=== PATIENT | male | born 1955 | race Caucasian/White ===

== ENCOUNTER 2018-11-09 11:32 | Day surgery (SDC) | payer OTHER ==
[2018-11-08 10:57] VITALS: BMI 45.0
[2018-11-09 12:28] VITALS: TEMP 97.8
[2018-11-09] MEDS ORDERED: MIDAZOLAM HCL 2 MG/2 ML SINGLE DOSE VIAL ONE (13:00)
[2018-11-09] MEDS ORDERED: PROPOFOL 20 ML ONE (13:01)
[2018-11-09] MEDS ORDERED: ceFAZolin SODIUM 1 GM VIAL IVPB ONE ×2 (13:14→13:24)
[2018-11-09] MEDS ORDERED: ceFAZolin SODIUM 1 GM VIAL ONE ×3 (13:24→13:38)
--- NOTE | 2018-11-09 13:34 | HP ---
History & Physical Update - History History: No Change - Physical Physical: No Change - Assessment Assessment: No Change - Plan Plan: No Change
[2018-11-09] MEDS ORDERED: ACETAMINOPHEN 1000 MG/100 ML VIAL (NON FORMULARY) IVPB ONE (13:36)
[2018-11-09] MEDS ORDERED: KETOROLAC TROMETHAMINE 30 MG/1 ML VIAL ONE ×2 (13:38→13:39)
[2018-11-09] MEDS ORDERED: IBUPROFEN 800 MG/8 ML IJ IVPB SCH (13:45)
[2018-11-09] MEDS ORDERED: DEXTROSE 5%-0.45% SALINE 1,000 ML IV SCH (13:45)
[2018-11-09 15:12] VITALS: BP 116/77; PULSE 77
--- NOTE | 2018-11-09 22:11 | OP ---
DATE OF OPERATION: 11/09/2018 PREOPERATIVE DIAGNOSIS: Right distal ureteral stone. POSTOPERATIVE DIAGNOSIS: Right distal ureteral stone. PROCEDURE: Right extracorporeal shock wave lithotripsy. SURGEON: Romario De La Garza MD FINDINGS: A calcification in the distal right ureter as seen on CAT scan and on fluoroscopy. OPERATION: The patient was brought to the OR, placed on the table in supine position. Stone was visualized on fluoroscopy. Stone was seen in the distal right ureter. This corresponded to calcification seen on CT scan. After localizing the stone in 3 planes, 3000 shocks were applied to the stone. The patient tolerated the procedure well, was woken up. ROMARIO DE LA GARZA M.D. [id number]
== END 2018-11-09 15:15 | disposition home or self-care (01) ==
LOC: JASU-SURG 11:32
PROVIDERS: ATTEND Urology
PROC: 0TF6XZZ Fragmentation in Right Ureter, External Approach (ICD-10-PCS; principal; 2018-11-09 13:00)
DX: N20.1 Calculus of ureter (principal); E66.01 Morbid (severe) obesity due to excess calories; I10 Essential (primary) hypertension; G47.30 Sleep apnea, unspecified